=== PATIENT | female | born 1960 | race Caucasian/White ===

== ENCOUNTER 2020-11-01 17:30 | Emergency (ER) | payer OTHER, MEDICARE, MEDICAID ==
[~2020-11-01] VITALS: Ht 157.5 cm; Wt 72.6 kg
[~2020-11-01 17:30] MED LIST: CYCLOBENZAPRINE10 MG; HYDROXYCHLOROQ200 M1; LEVOTHYROXIN0.112 M1; MOBIC15 MG; NORCO 5-325 TA1 EACH PO; PHENERGAN 25 MG25 MG PO; PROZAC 20 MG20 M1
[2020-11-01] MEDS ORDERED: VOLTAREN GEL 1100 G1 TOP (19:17)
[2020-11-01] MEDS ORDERED: NAPROSYN500 M1 PO (19:17)
[2020-11-01 19:28] VITALS: BP 141/70
== END 2020-11-01 19:28 | disposition home or self-care (01) ==
LOC: M.ERS 17:30
DX: S16.1XXA Strain of muscle, fascia and tendon at neck level, initial encounter (principal); S46.812A Strain of other muscles, fascia and tendons at shoulder and upper arm level, left arm, initial encounter; R20.2 Paresthesia of skin; J45.909 Unspecified asthma, uncomplicated; M32.9 Systemic lupus erythematosus, unspecified; Z98.51 Tubal ligation status; Z90.710 Acquired absence of both cervix and uterus; Z88.6 Allergy status to analgesic agent; V89.2XXA Person injured in unspecified motor-vehicle accident, traffic, initial encounter; Y93.89 Activity, other specified; Y92.89 Other specified places as the place of occurrence of the external cause; Y99.8 Other external cause status